=== PATIENT | male | born 1975 | race Caucasian/White ===

== ENCOUNTER 2017-03-11 17:07 | Emergency (ER) | payer OTHER ==
--- NOTE | 2017-03-11 17:09 | PDOC ---
History of Present Illness - History of Present Illness Initial Comments: 03/11/17 17:18 The patient is a 41 year old male, with no significant past medical history, who presents to the emergency department with left ankle pain and swelling s/p rolling his ankle at work a couple of hours ago. He states he was walking back and forth at work rather fast today when he felt his ankle roll. He reports feeling immediate pain and swelling which he localizes to the lateral aspect of his left ankle. He reports he rested immediately after the injury occurred and iced his ankle every 15 minutes for about 2 hours before coming to the ED. He states he can not fuly bear weight to his left foot secondary to pain. He denies taking any medication for pain because he was concerned about driving. He denies chest pain, shortness of breath, headache and dizziness. He denies fever, chills, nausea, vomit, diarrhea and constipation. He denies dysuria, frequency, urgency and hematuria. Allergies: NKDA Past surgical history: appendectomy <Estrella Cardona - Last Filed: 03/11/17 18:44> <Frances Jaquez - Last Filed: 03/11/17 19:00> - General Chief Complaint: Injury Stated Complaint: LEFT ANKLE INJURY Time Seen by Provider: 03/11/17 17:08 Past History <Estrella Cardona - Last Filed: 03/11/17 18:44> <Frances Jaquez - Last Filed: 03/11/17 19:00> - Past Medical History Allergies/Adverse Reactions: Allergies Allergy/AdvReac Type Severity Reaction Status Date / Time No Known Allergies Allergy Verified 03/11/17 17:08 Home Medications: Ambulatory Orders NK [No Known Home Medication] 03/11/17 Review of Systems - Review of Systems Able to Perform ROS?: Yes Comments:: 03/11/17 17:18 GENERAL/CONSTITUTIONAL: No fever or chills. No weakness. HEAD, EYES, EARS, NOSE AND THROAT: No change in vision. No ear pain or discharge. No sore throat. CARDIOVASCULAR: No chest pain or shortness of breath. RESPIRATORY: No cough, wheezing, or hemoptysis. GASTROINTESTINAL: No nausea, vomiting, diarrhea or constipation. GENITOURINARY: No dysuria, frequency, or change in urination. MUSCULOSKELETAL: (+) Pain and swelling to the lateral left ankle. No muscle swelling or pain. No neck or back pain. SKIN: No rash NEUROLOGIC: No headache, vertigo, loss of consciousness, or change in strength/ sensation. ENDOCRINE: No increased thirst. No abnormal weight change. HEMATOLOGIC/LYMPHATIC: No anemia, easy bleeding, or history of blood clots. ALLERGIC/IMMUNOLOGIC: No hives or skin allergy. <Estrella aCrdona - Last Filed: 03/11/17 18:44> *Physical Exam - Vital Signs Last Vital Signs Temp Pulse Resp BP Pulse Ox 98.6 F 89 18 157/104 97 03/11/17 17:08 03/11/17 17:08 03/11/17 17:08 03/11/17 17:08 03/11/17 17:08 <Estrella Cardona - Last Filed: 03/11/17 18:44> - Physical Exam Comments: GENERAL: Awake, alert, and fully oriented, in no acute distress HEAD: No signs of trauma EXTREMITIES: L ankle with lateral non-pitting edema, dec ROM due to pain. + Tenderness to the lateral malleolus and base of 5th metatarsal. Remainder of extremities with normal range of motion, no edema. No clubbing or cyanosis. No cords, erythema, or tenderness NEUROLOGICAL: Cranial nerves II through XII grossly intact. Normal speech, normal gait SKIN: Warm, Dry, normal turgor, no rashes or lesions noted. <Frances Jaquez - Last Filed: 03/11/17 19:00> Procedures - Splinting Splint Location: Left: Ankle Brody Bandage: 3" <Frances Jaquez - Last Filed: 03/11/17 19:00> ED Treatment Course - RADIOLOGY Radiograph Interpretation: 03/11/17 18:41 Left Ankle/Foot xray was read by Dr. Macedo at 18:30 Impression: No acute fractures or bony deformities <Estrella Cardona - Last Filed: 03/11/17 18:44> Medical Decision Making - Medical Decision Making Patient was placed in an BRODY wrap. Patient was crutch trained. Ortho f/u if he does not improve. <Frances Jaquez - Last Filed: 03/11/17 19:00> *DC/Admit/Observation/Transfer - Attestations Scribe Attestion: 03/11/17 17:19 Documentation prepared by Estrella Cardona, acting as chief medical technologist for Frances Jaquez MD, <Estrella Cardona - Last Filed: 03/11/17 18:44> - Discharge Dispostion Admit: No <Frances Jaquez - Last Filed: 03/11/17 19:00> Diagnosis at time of Disposition: Ankle sprain Qualifiers: Encounter type: initial encounter Involved ligament of ankle: unspecified ligament Laterality: left Qualified Code(s): S93.402A - Sprain of unspecified ligament of left ankle, initial encounter - Discharge Dispostion Disposition: HOME Condition at time of disposition: Stable - Referrals Referrals: Maldonado Vaca MD [Staff Physician] - - Patient Instructions Printed Discharge Instructions: DI for Ankle Sprain
[2017-03-11 17:15] VITALS: TEMP 98.6; BMI 32.8
[2017-03-11] MEDS ORDERED: IBUPROFEN 600 MG TABLET (FP) PO ONE ×2 (17:15→17:17)
[2017-03-11 18:19] VITALS: BP 132/92; PULSE 73
== END 2017-03-11 18:48 | disposition home or self-care (01) ==
LOC: FER 17:07
DX: S93.402A Sprain of unspecified ligament of left ankle, initial encounter (principal); W18.49XA Other slipping, tripping and stumbling without falling, initial encounter; Y93.01 Activity, walking, marching and hiking; Y92.89 Other specified places as the place of occurrence of the external cause; Y99.0 Civilian activity done for income or pay
CPT/HCPCS: 73610-TC-LT; 73630-TC-LT; 99281-25